=== PATIENT | female | born 1990 | race African-American/Black ===

== ENCOUNTER 2016-06-13 17:27 | Emergency (ER) | payer OTHER ==
[~2016-06-13] VITALS: Ht 167.6 cm; Wt 105.0 kg
[~2016-06-13 17:27] MED LIST: AMOXICILLIN500 MG OR; AMOXICILLIN500 MG PO; BACTRIM DS1 TAB PO; CEPHALEXIN500 MG OR; CEPHALEXIN500 MG PO; CIPROFLOXACN500 MG PO; CLARITIN10 M1 PO; FERRETTS325 MG PO; HYDROCO/APAP1 TA9 PO; KEFLEX500 M1 PO; LORTAB 10-325 M1 TAB PO; LORTAB 1010 MG PO; LORTAB 7.5 OR; MEDDOSEPAK OR; NAPROSYN500 MG PO; NORCO1 TA1 PO; ULTRAM50 MG PO; VEETIDS500 MG OR; ZOFRAN ODT4 MG PO
[2016-06-13] MEDS ORDERED: NAPROSYN500 MG PO (18:29)
[2016-06-13 18:35] VITALS: BP 128/69
== END 2016-06-13 18:35 | disposition home or self-care (01) | DRG 563 ==
LOC: ED 17:27
DX: S63.91XA Sprain of unspecified part of right wrist and hand, initial encounter (principal); X50.3XXA Overexertion from repetitive movements, initial encounter; Y93.E8 Activity, other personal hygiene; Y92.513 Shop (commercial) as the place of occurrence of the external cause

== ENCOUNTER 2017-04-25 17:34 | Emergency (ER) | payer OTHER ==
[~2017-04-25] VITALS: Ht 167.6 cm; Wt 114.0 kg
[2017-04-25 19:45] VITALS: BP 132/74
[2017-04-25] MEDS ORDERED: ORPHENADRINE100 MG PO (20:59)
[2017-04-25] MEDS ORDERED: IBUPROFEN600 MG PO (20:59)
== END 2017-04-25 21:38 | disposition home or self-care (01) | DRG 538 ==
LOC: ED 17:34
DX: S76.911A Strain of unspecified muscles, fascia and tendons at thigh level, right thigh, initial encounter (principal); W18.30XA Fall on same level, unspecified, initial encounter; Y93.E9 Activity, other interior property and clothing maintenance; Y92.009 Unspecified place in unspecified non-institutional (private) residence as the place of occurrence of the external cause

== ENCOUNTER 2018-10-03 17:56 | Emergency (ER) | payer SELFPAY ==
[~2018-10-03] VITALS: Ht 167.6 cm; Wt 84.1 kg
[~2018-10-03 17:56] MED LIST changes: +IBUPROFEN600 MG PO; +ORPHENADRINE100 MG PO
[2018-10-03] MEDS ORDERED: AMOX/K CLAV875 M1 PO (18:38)
[2018-10-03] MEDS ORDERED: LORTAB 1010 MG PO (18:38)
[2018-10-03 18:55] VITALS: BP 140/80
== END 2018-10-03 18:55 | disposition home or self-care (01) | DRG 605 ==
LOC: ED 17:56
DX: S61.451A Open bite of right hand, initial encounter (principal); W54.0XXA Bitten by dog, initial encounter; Y93.89 Activity, other specified; Y92.009 Unspecified place in unspecified non-institutional (private) residence as the place of occurrence of the external cause

== ENCOUNTER 2019-01-09 00:25 | Emergency (ER) | payer SELFPAY ==
[~2019-01-09] VITALS: Ht 167.6 cm; Wt 101.4 kg
[~2019-01-09 00:25] MED LIST changes: +AMOX/K CLAV875 M1 PO
[2019-01-09] MEDS ORDERED: ULTRAM50 M1 PO (00:44)
[2019-01-09] MEDS ORDERED: AMOXICILLIN500 MG PO (00:44)
[2019-01-09 00:58] VITALS: BP 122/85
== END 2019-01-09 00:58 | disposition home or self-care (01) | DRG 159 ==
LOC: ED 00:25
DX: K04.7 Periapical abscess without sinus (principal)

== ENCOUNTER 2019-02-14 10:57 | Emergency (ER) | payer SELFPAY ==
[~2019-02-14 10:57] MED LIST changes: +ULTRAM50 M1 PO
[2019-02-14] MEDS ORDERED: PROAIR HFA108 MCG/AC PO (11:41)
[2019-02-14] MEDS ORDERED: TAM75CAP PO (11:41)
[2019-02-14] MEDS ORDERED: ONDANSETRON4 MG PO (11:41)
[2019-02-14] MEDS ORDERED: NO HOME MEDS (12:00)
[2019-02-14 12:05] VITALS: BP 123/61
== END 2019-02-14 12:05 | disposition home or self-care (01) | DRG 153 ==
LOC: ED 10:57
DX: J11.1 Influenza due to unidentified influenza virus with other respiratory manifestations (principal)

== ENCOUNTER 2019-03-14 | Emergency (ER) | payer SELFPAY ==
[~2019-03-14] MED LIST changes: +NO HOME MEDS; +ONDANSETRON4 MG PO; +PROAIR HFA108 MCG/AC PO; +TAM75CAP PO
[2019-03-14] MEDS ORDERED: AMOXICILLIN875 MG PO (21:08)
== END 2019-03-14 21:21 | disposition home or self-care (01) | DRG 153 ==
DX: J02.0 Streptococcal pharyngitis (principal)

== ENCOUNTER 2021-07-06 13:39 | Emergency (ER) | payer SELFPAY ==
[~2021-07-06] VITALS: Ht 167.6 cm; Wt 100.0 kg
[~2021-07-06 13:39] MED LIST changes: +AMOXICILLIN875 MG PO
[2021-07-06 14:03] VITALS: BP 136/98
[2021-07-06 15:00] LABS: HEMATOCRIT 26.7 % (37.0-47.0); HEMOGLOBIN 7.1 g/dl (12.0-16.0); MEAN CORPUSCULAR HGB 18.2 pG CALC (26.0-32.0); MEAN CORPUSCULAR HGB CONC 26.6 g/dL CAL (32.0-36.0); NEUT# 3.14 thou/uL (2.00-7.15); RED BLOOD COUNT 3.91 mill/uL (4.20-5.60); RED CELL DISTRI WIDTH 21.5 % (11.5-15.5)
[2021-07-06 15:01] LABS: MEAN CELL VOLUME 68.3 fL CALC (80.0-100.0)
[2021-07-06 15:34] LABS: ALBUMIN 3.9 g/dL (3.2-5.0); ALKALINE PHOSPHATASE 57 u/l (38-126); BILIRUBIN, TOTAL 0.3 mg/dL (0.0-1.4); BUN 5 mg/dL (7-17); BUN/CREATININE RATIO 7 (12-20 (CALC)); CARBON DIOXIDE 21 mmol/l (22-30); CHLORIDE 106 mmol/l (95-108); CREATININE 0.7 mg/dL (0.5-1.0); GFR > 60 ML/MIN (>=60 (CALC)); GFR FOR AFR.AMER. > 60 ML/MIN (>=60 (CALC)); LIPASE 82 u/l (23-300); SGOT/AST 30 u/l (14-36); SODIUM 135 mmol/l (137-146); TOTAL PROTEIN 7.6 g/dL (6.3-8.2)
[2021-07-06 15:38] LABS: ANION GAP 11 (6-22 (CALC)); POTASSIUM 3.4 mmol/l (3.5-5.1)
[2021-07-06] MEDS ORDERED: TAM75CAP PO (17:20)
[2021-07-06] MEDS ORDERED: PROTONIX40 M2 PO (17:20)
[2021-07-06] MEDS ORDERED: FERROUS SULF325 M2 PO (17:20)
[2021-07-06] MEDS ORDERED: ONDANSETRON4 MG PO (17:20)
== END 2021-07-06 18:09 | disposition home or self-care (01) | DRG 195 ==
LOC: ED 13:39
PROVIDERS: Nurse Practitioner
DX: J10.1 Influenza due to other identified influenza virus with other respiratory manifestations (principal); Z20.822 Contact with and (suspected) exposure to COVID-19
CPT/HCPCS: S0164

== ENCOUNTER 2022-10-26 22:36 | Emergency (ER) | payer BC ==
[~2022-10-26] VITALS: Ht 167.6 cm; Wt 103.0 kg
[~2022-10-26 22:36] MED LIST changes: +FERROUS SULF325 M2 PO; +PROTONIX40 M2 PO
[2022-10-26 23:04] VITALS: BP 152/58
[2022-10-26 23:50] LABS: BASO% 0.7 % (0-3); EOS% 1.1 % (0-8); HEMATOCRIT 24.7 % (37.0-47.0); IMMATURE GRANULOCYTES 0.1 % (0.0-5.0); LYMPH% 34.1 % (15-41); MEAN CELL VOLUME 67.1 fL CALC (80.0-100.0); MEAN CORPUSCULAR HGB 18.2 pG CALC (26.0-32.0); MEAN CORPUSCULAR HGB CONC 27.1 g/dL CAL (32.0-36.0); MONO% 6.9 % (2-13); NEUT# 4.73 thou/uL (2.00-7.15); NEUT% 57.1 % (42-76); RED BLOOD COUNT 3.68 mill/uL (4.20-5.60); RED CELL DISTRI WIDTH 19.8 % (11.5-15.5)
[2022-10-26 23:51] LABS: URINE BILIRUBIN - DIPSTICK Negative (NEGATIVE); URINE BLOOD DIPSTICK Negative (NEGATIVE); URINE GLUCOSE - DIPSTICK Negative (NEGATIVE); URINE KETONE Trace mg/dL (NEGATIVE); URINE LEUK ESTERASE Negative (NEGATIVE); URINE NITRITE - DIPSTICK Negative (Negative); URINE PH 5.5 (4.5-8.0); URINE PROTEIN - DIPSTICK Negative (NEG-TRACE); URINE SPECIFIC GRAVITY >=1.030; URINE UROBILINOGEN - DIPSTICK 0.2 E.U./dL (0.2)
[2022-10-27 00:06] LABS: URINE COLOR Yellow
[2022-10-27 00:22] LABS: ALBUMIN 3.9 g/dL (3.2-5.0); ALKALINE PHOSPHATASE 62 u/l (38-126); ANION GAP 11 (6-22 (CALC)); BILIRUBIN, TOTAL 0.4 mg/dL (0.02-1.3); BUN 10 mg/dL (7-17); BUN/CREATININE RATIO 10 (12-20 (CALC)); CARBON DIOXIDE 25 mmol/l (22-30); CHLORIDE 106 mmol/l (95-108); GFR FOR AFR.AMER. > 60 ML/MIN (>=60 (CALC)); GFR OTHER RACES > 60 ML/MIN (>=60 (CALC)); POTASSIUM 3.9 mmol/l (3.5-5.1); SGOT/AST 31 u/l (14-36); SODIUM 138 mmol/l (137-146); TOTAL PROTEIN 7.5 g/dL (6.3-8.2)
[2022-10-27 00:29] LABS: HEMOGLOBIN 6.7 g/dl (12.0-16.0)
[2022-10-27] MEDS ORDERED: FEOSOL45 MG PO (01:10)
[2022-10-27 01:20] VITALS: BP 152/58
== END 2022-10-27 01:27 | disposition home or self-care (01) | DRG 761 ==
LOC: ED 22:36
PROVIDERS: Emergency Medicine
DX: N93.8 Other specified abnormal uterine and vaginal bleeding (principal); D50.0 Iron deficiency anemia secondary to blood loss (chronic); Z53.29 Procedure and treatment not carried out because of patient's decision for other reasons